=== PATIENT | female | born 2000 | race African-American/Black ===

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

== ENCOUNTER 2022-06-25 19:59 | Emergency (ER) | payer MEDICAID ==
[~2022-06-25] VITALS: Ht 154.9 cm; Wt 76.0 kg
[2022-06-25 20:09] VITALS: BP 115/70
[2022-06-25] MEDS ORDERED: IBUPROFEN 400MG TABLET PO ONE (20:45)
[2022-06-25 20:51] LABS: BASOPHILS % 0.6 % (0.0-2.0); EOSINOPHILS % 1.9 % (0.0-5.0); HEMATOCRIT. 36.2 % (36.0-48.0); HEMOGLOBIN. 12.4 g/dL (12.0-16.0); LYMPHOCYTES % 38.6 % (20.0-50.0); MEAN CORPUSCULAR HEMOGLOBIN 30.8 pg (28.0-32.0); MEAN CORPUSCULAR VOLUME 89.8 fL (81.0-99.0); MEAN PLATELET VOLUME 8.3 fl (7.4-10.4); MONOCYTES % 9.3 % (2.0-8.0); NEUTROPHILS % 49.6 % (40.0-76.0); PLATELET 299 x1000/uL (130-400); RED BLOOD CELL COUNT 4.03 mill/uL (4.2-5.4); RED CELL DISTRIBUTION WIDTH 13.1 % (11.6-14.6)
[2022-06-25 20:58] LABS: CHLORIDE 106 mEq/L (98-107)
[2022-06-25 21:51] LABS: HCG SCREEN NEGATIVE
[2022-06-25] MEDS ORDERED: IBUP-2028 MT (22:01)
== END 2022-06-25 22:12 | disposition home or self-care (01) ==
LOC: ER 19:59
DX: R07.89 Other chest pain (principal)
CPT/HCPCS: 36415; 71045; 80053; 83880; 84484; 84703; 85025; 93005; 99285

== ENCOUNTER 2022-10-27 09:59 | Emergency (ER) | payer MEDICAID ==
[~2022-10-27 09:59] MED LIST: IBUP-2028 MT
[2022-10-27 10:40] LABS: BASOPHILS % 0.6 % (0.0-2.0); EOSINOPHILS % 1.4 % (0.0-5.0); HEMATOCRIT. 37.2 % (36.0-48.0); HEMOGLOBIN. 12.3 g/dL (12.0-16.0); LYMPHOCYTES % 7.7 % (20.0-50.0); MEAN CORPUSCULAR HEMOGLOBIN 29.8 pg (28.0-32.0); MEAN PLATELET VOLUME 8.3 fl (7.4-10.4); MONOCYTES % 13.3 % (2.0-8.0); PLATELET 247 x1000/uL (130-400); RED BLOOD CELL COUNT 4.14 mill/uL (4.2-5.4); RED CELL DISTRIBUTION WIDTH 13.1 % (11.6-14.6)
[2022-10-27 10:47] LABS: CHLORIDE 107 mEq/L (98-107)
[2022-10-27 12:06] LABS: CLARITY URINE CLEAR (CLEAR); COLOR URINE YELLOW (YELLOW); KETONES URINE NEGATIVE (NEGATIVE); LEUKOCYTE ESTERASE URINE 1+ (NEGATIVE); NITRITE URINE NEGATIVE (NEGATIVE); OCCULT BLOOD URINE NEGATIVE (NEGATIVE); PROTEIN URINE NEGATIVE (NEGATIVE); SPECIFIC GRAVITY URINE 1.024 (1.005-1.030)
[2022-10-27] MEDS ORDERED: NITR100C MT (14:44)
[2022-10-27] MEDS ORDERED: NAPR-681 MT (14:47)
[2022-10-27 14:50] VITALS: BP 118/58
== END 2022-10-27 15:12 | disposition home or self-care (01) ==
LOC: ER 09:59
DX: N39.0 Urinary tract infection, site not specified (principal)
CPT/HCPCS: 36415; 76830; 76856; 80053; 81003; 81025; 85025; 99284

== ENCOUNTER 2022-10-29 09:24 | Emergency (ER) | payer MEDICAID ==
[~2022-10-29] VITALS: Ht 152.4 cm; Wt 75.0 kg
[~2022-10-29 09:24] MED LIST changes: +NAPR-681 MT; +NITR100C MT
[2022-10-29] MEDS ORDERED: ACETAMINOPHEN 325MG TABLET PO ONE (11:00)
[2022-10-29] MEDS ORDERED: KETOROLAC 60MG/2ML VIAL IM ONE (11:00)
[2022-10-29 13:45] VITALS: BP 119/69
== END 2022-10-29 13:52 | disposition home or self-care (01) ==
LOC: ER 09:24
DX: R05.9 Cough, unspecified (principal); R50.9 Fever, unspecified
CPT/HCPCS: 71045; 81025; 96372; 99283; J1885